=== PATIENT | male | born 1985 | race Caucasian/White ===

== ENCOUNTER → 2020-12-05 11:56 | Outpatient (CLI) | payer OTHER, SELFPAY ==
[2020-12-05 20:43] LABS: SARS-CoV-2 RNA PCR Negative
== END ==
PROVIDERS: PCP Family Medicine; Visit Provider Physician Assistant
DX: Z20.822 Contact with and (suspected) exposure to COVID-19 (principal); R68.89 Other general symptoms and signs
CPT/HCPCS: C9803; U0003; U0005

== ENCOUNTER 2021-06-27 11:36 | Outpatient (CLI) | payer OTHER, SELFPAY ==
--- NOTE | ~2021-06-27 | XR_ITS ---
EXAMINATION: XR chest 2V 06/27/2021 11:52 INDICATION: Cough PROCEDURE: 2 view chest COMPARISON: Comparison to multiple prior studies sequentially, with oldest reviewed study dated 12/24. FINDINGS: The lungs are clear. The cardiomediastinal silhouette is within normal limits. There are no pleural effusions. There is no pneumothorax suspected. IMPRESSION: 1: NO ACUTE CARDIOPULMONARY DISEASE. Reviewed, dictated and finalized at location A.
== END 2021-06-27 11:37 | disposition home or self-care (01) ==
LOC: ANHIMG 11:42
PROVIDERS: PCP Family Medicine; Visit Provider Physician Assistant
DX: R05 Cough (principal)
CPT/HCPCS: 71046

== ENCOUNTER 2021-12-16 10:58 | Outpatient (CLI) | payer OTHER, SELFPAY ==
--- NOTE | ~2021-12-16 | CT_ITS ---
EXAMINATION: CTA chest PE protocol DATE: 12/16/2021 11:16 INDICATION: Dyspnea, unspecified. TECHNIQUE: Computed tomography angiography (CTA) of the chest was performed with 100 mL Omnipaque-350 intravenous contrast timed to evaluate the pulmonary arteries. Coronal maximum intensity projection 3D-reconstructions were created by the technologist. Automated exposure control and iterative reconst ruction technique were employed. The dose-length product was 578.72 mGy-cm. COMPARISON: Chest CT 12/29/2011 FINDINGS: There is mild atelectasis bilaterally. There are tiny pleural effusions. The heart size is normal. No pericardial effusion. There is no pulmonary embolus. There is diffuse hepatic steatosis. T here is mild thoracic spondylosis. IMPRESSION: 1. No pulmonary embolus. 2. Tiny pleural effusions. 3. Diffuse hepatic steatosis. Reviewed, dictated and finalized at location A. R AUTOMATIC
== END 2021-12-16 10:59 | disposition home or self-care (01) ==
PROVIDERS: PCP Family Medicine; Visit Provider Nurse Practitioner Gerontology
DX: R06.00 Dyspnea, unspecified (principal); R06.89 Other abnormalities of breathing; Z86.711 Personal history of pulmonary embolism; K76.0 Fatty (change of) liver, not elsewhere classified; M47.814 Spondylosis without myelopathy or radiculopathy, thoracic region
CPT/HCPCS: 71275; Q9967

== ENCOUNTER 2022-03-06 01:50 | Emergency (ER) | payer OTHER, SELFPAY ==
[2022-03-06] VITALS (32 sets, daily range): BP systolic 120–145; BP diastolic 73–103; PULSE 87–117; RESP 8–31; TEMP 36.2–36.8; O2SAT 87–100
--- NOTE | ~2022-03-06 | CT_ITS ---
EXAMINATION: CT abdomen pelvis w con DATE: 03/06/2022 04:38 INDICATION: Left upper quadrant abdominal pain. TECHNIQUE: Computed tomography (CT) of the abdomen and pelvis was performed with 75 mL Omnipaque 300 intravenous contrast. Automated exposure control and iterative reconstruction technique were employed . The dose-length product was 654.38 mGy-cm. COMPARISON: Chest CT 12/16/2021 FINDINGS: The visualized portions of the lung bases demonstrate minimal atelectasis. No pleural effus ion. The heart size is normal. No pericardial effusion. The liver, gallbladder, spleen, pancreas, and adrenal glands are normal. There are 1 mm and 2 mm stones in right kidney. There is a 2 mm stone in left kidney. There is liquid stool in the colon suggestive of diarrhea. The appendix is normal. There are no dilated loops of bowel. There are no pathologically enlarged lymph nodes. There is no free in traperitoneal fluid. There is mild lumbar spondylosis. IMPRESSION: 1. Liquid stool in the colon suggestive of diarrhea. Reviewed, dictated and finalized at location A.
[2022-03-06 03:33] LABS: Basophils Percent Auto 0.3 % (0.2-1.2); Eosinophils Percent Auto 0.3 % (0-4.4); Hematocrit 52.1 % (42.0-52.0); Hemoglobin 17.7 g/dL (14.0-18.0); Immature Granulocyte Absolute 0.09 K/mm3 (0.00-0.031); Immature Granulocyte Percent A 0.7 % (0-0.5); Lymphocytes Absolute Auto 1.08 K/mm3 (0.9-3.2); Lymphocytes Percent Auto 7.9 % (18.3-44.2); Mean Corpuscular Hemoglobin 29.5 pg (26-34); Mean Corpuscular Volume 86.7 fl (80-100); Mean Platelet Volume 9.4 fl (7.4-10.4); Monocytes Percent Auto 7.4 % (2.6-8.5); Neutrophils Absolute Auto 11.5 K/mm3 (1.3-6.7); Neutrophils Percent Auto 83.4 % (45.5-73.1); Platelet Count Result 291 k/mm3 (150-375); Red Blood Count 6.01 M/mm3 (4.6-6.20); Red Cell Distribution Width 13.8 % (11.5-14.5); White Blood Count 13.7 K/mm3 (4.5-10.0)
[2022-03-06] MEDS: SODIUM CHLORIDE 0.9% IV 1,000 ML 999 ML IV CONT (03:43)
--- NOTE | 2022-03-06 03:45 | ED.NAVMDI ---
HPI - Nausea/Vomiting/Diarrhea General Chief complaint: GI Bleed Stated complaint: black emesis, diarrhea Time Seen by Provider: 03/06/22 03:10 History of Present Illness HPI Narrative: Patient is a 36-year old male complaining of nausea, vomiting, diarrhea accompanied by upper abdominal discomfort that started last night. Patient states that after taking Pepto-Bismol earlier tonight he started to vomit black vomitus. Patient describes his diarrhea as loose watery, nonbloody. Patient denies being in any oral anticoagulants and antiplatelet medication. Patient denies any recent use of NSAIDs. Related Data Allergies Allergy/AdvReac Type Severity Reaction Status Date / Time No Known Allergies Allergy Mild Verified 02/04/22 13:24 Review of Systems Review of Systems: All systems reviewed & are unremarkable except as noted in HPI and below Constitutional: Constitutional: Denies body ache(s), Denies chills, Denies excessive sweating, Denies fatigue, Denies fever(s), Denies headache(s), Denies lethargy, Denies malaise, Denies weakness and Denies weight loss Eyes: Eyes: Denies blurry vision, Denies change in vision and Denies loss of vision ENT: Denies dizziness, Denies ear discharge, Denies headache(s), Denies lip swelling, Denies epistaxis, Denies nasal congestion, Denies neck pain, Denies throat swelling and Denies tongue swelling Cardiovascular: Cardiovascular: Denies chest pain, Denies chest pain at rest, Denies chest pain with activity, Denies diaphoresis, Denies rapid heart rate, Denies edema, Denies irregular heart rhythm, Denies lightheadedness, Denies palpitations, Denies dyspnea and Denies dyspnea on exertion Respiratory: Respiratory: Denies chest congestion, Denies cough, Denies hemoptysis, Denies dyspnea and Denies dyspnea on exertion Gastrointestinal: Gastrointestinal: Denies melena and Denies hematochezia Musculoskeletal: Musculoskeletal: Denies abnormal gait, Denies deformity, Denies joint swelling, Denies limited range of motion, Denies neck pain and Denies numbness Neurologic: Denies Abnormal speech present, Denies abnormal gait, Denies confusion, Denies dizziness, Denies headache(s), Denies focal weakness, Denies loss of vision, Denies numbness, Denies Other visual disturbances, Denies Sensory deficit (Neuro) and Denies weakness Psychiatric: Psychiatric: Denies confusion, Denies depression, Denies auditory hallucinations, Denies homicidal ideation and Denies suicidal ideation Endocrine: Endocrine: Denies cold intolerance, Denies excessive sweating, Denies fatigue, Denies heat intolerance and Denies palpitations Hematologic/Lymphatic: Hematologic/Lymphatic: Denies easy bleeding and Denies easy bruising Allergic/Immunologic: Allergic/Immunologic: Denies lip swelling, Denies throat swelling and Denies tongue swelling PMFSH Past Medical History Medical History Adult hypothyroidism Pulmonary embolism (~2003) Family History Family History Other Diabetes mellitus Social History Social History Social History: Smoking packs per day: 0.25 Smoking cigarettes per day: 5.0 Years smoked: 5 Smoking pack-years: 1.25 Smoking status: Former smoker Tobacco type: cigarettes Second hand tobacco smoke exposure: No Alcohol intake: former Substance use: never Substance use type: does not use 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
[2022-03-06 03:46] LABS: INR 1.1; Prothrombin Time 13.6 Seconds (11.1-14.7)
[2022-03-06 03:47] LABS: Partial Thromboplastin Time 29.3 SECONDS (22.3-36.8)
[2022-03-06 04:15] LABS: Alanine Aminotransferase 50 U/L (6-50); Albumin Level 4.8 g/dL (3.5-5.1); Alkaline Phosphatase 73 U/L (38-126); Anion Gap 12 mmol/L (8-16); Aspartate Amino Transferase 37 U/L (17-59); Bilirubin,Total 2.5 mg/dL (0.2-1.3); Blood Urea Nitrogen 17 mg/dL (9-20); Carbon Dioxide 19 mmol/L (22-30); Chloride 108 mmol/L (98-107); Estimated CRCL calculation 97 ml/min; Estimated Glomerular Filt Rate > 60; Glucose 138 mg/dL (65-110); Potassium 3.6 mmol/L (3.4-5.0); Sodium 139 mmol/L (137-145)
[2022-03-06] MEDS: PROMETHAZINE HCL 25 MG/ML AMPUL 12.5 MG IV PUSH (04:35)
[2022-03-06] MEDS: PANTOPRAZOLE SODIUM IV 40 MG VIAL IV PUSH (04:35)
[2022-03-06] MEDS: ONDANSETRON INJ 4 MG/2 ML VIAL IV PUSH (04:53)
--- NOTE | 2022-03-06 06:09 | PC.NURSE ---
pt sleeping on sthretcher at this hour. Up to the bath room once. Arouses with eas to verbal stimuli. Reports feeling better at this time. cont awaiting CT results.
== END 2022-03-06 06:55 | disposition home or self-care (01) ==
LOC: ANHED 03:18
PROVIDERS: Emergency Provider Emergency Medicine; PCP Family Medicine
DX: K52.9 Noninfective gastroenteritis and colitis, unspecified (principal); E03.9 Hypothyroidism, unspecified; Z86.711 Personal history of pulmonary embolism; Z87.891 Personal history of nicotine dependence
CPT/HCPCS: 36415; 74177; 80053; 85025; 85610; 85730; 86850; 86900; 86901; 96361; 96374; 96375; 99284; C9113; J2405; J2550; J7030; Q9967

== ENCOUNTER → 2022-06-04 09:51 | Outpatient (CLI) | payer OTHER, SELFPAY ==
--- NOTE | ~2022-06-04 | XR_ITS ---
EXAMINATION: XR finger 1st LT min 2V DATE: 06/04/2022 10:05 INDICATION: Left thumb pain. Injury. TECHNIQUE: 3 views of left thumb were obtained. COMPARISON: None. FINDINGS: Bone alignment is normal. No fracture. There is mild osteoarthritis of first metacarpophala ngeal joint. IMPRESSION: 1. Mild osteoarthritis of first metacarpophalangeal joint. Reviewed, dictated and finalized at location A.
== END ==
PROVIDERS: PCP Family Medicine; Visit Provider Nurse Practitioner Gerontology
DX: M18.12 Unilateral primary osteoarthritis of first carpometacarpal joint, left hand (principal)
CPT/HCPCS: 73140

== ENCOUNTER 2022-09-24 12:25 | Outpatient (CLI) | payer OTHER, SELFPAY ==
[2022-09-24 13:41] LABS: SARS-CoV-2 RNA PCR Negative
== END 2022-09-24 12:26 | disposition home or self-care (01) ==
LOC: ANHLAB 12:27
PROVIDERS: PCP Family Medicine; Visit Provider Nurse Practitioner Gerontology
DX: Z20.822 Contact with and (suspected) exposure to COVID-19 (principal)
CPT/HCPCS: U0003; U0005

== ENCOUNTER 2022-09-29 12:17 | Outpatient (CLI) | payer OTHER, SELFPAY ==
--- NOTE | ~2022-09-29 | XR_ITS ---
Clinical Indication: Cough PA and lateral views of the chest: Comparison: 06/27/2021 Findings: The lungs are clear, without evidence of focal consolidation or pleural effusion. Cardiome diastinal silhouette is within normal limits. Bones and soft tissues are unremarkable. Impression: Normal chest. Reviewed, dictated and finalized at location [] RINTENDENT MEASUREMENT Impression: Normal chest.
== END 2022-09-29 12:18 | disposition home or self-care (01) ==
LOC: ANHIMG 12:19
PROVIDERS: PCP Family Medicine; Visit Provider Nurse Practitioner Gerontology
DX: R05.9 Cough, unspecified (principal)
CPT/HCPCS: 71046

== ENCOUNTER 2023-08-05 09:05 | Outpatient (CLI) | payer BC, SELFPAY ==
--- NOTE | ~2023-08-05 | XR_ITS ---
XR hand RT 2V DATE: 08/05/2023 09:27 INDICATION: Hand closed in door. Pain and swelling of fifth metacarpophalangeal area TECHNIQUE: AP and lateral views COMPARISON: None FINDINGS: No fracture or dislocation, periosteal reaction or bone destruction is evident. IMPRESSION: Negative Reviewed, dictated and finalized at location A. IMPRESSION: Negative
== END 2023-08-05 09:06 | disposition home or self-care (01) ==
PROVIDERS: PCP Family Medicine; Visit Provider Family Medicine
DX: S69.91XA Unspecified injury of right wrist, hand and finger(s), initial encounter (principal); W23.1XXA Caught, crushed, jammed, or pinched between stationary objects, initial encounter
CPT/HCPCS: 73120

== ENCOUNTER 2024-04-07 14:05 | Emergency (ER) | payer BC, SELFPAY ==
--- NOTE | ~2024-04-07 | XR_ITS ---
XR chest 2V Ordering provider: Delia Munoz MD History: 38 years Male with . CP, LEFT SIDE NECK PAIN, PURPLE TOES . Comparison: September 29, 2022 FINDINGS: MEDIASTINUM: The cardiac silhouette is not enlarged. LUNGS: No infiltrates, effusions or pneumothorax. OTHER: No free air under the diaphragm. IMPRESSION: No acute cardiopulmonary pathology. Reviewed, dictated and finalized at location A.
--- NOTE | ~2024-04-07 | CT_ITS ---
EXAMINATION: CTA chest PE protocol DATE: 04/07/2024 17:13 INDICATION: CP, SOB, hx PE TECHNIQUE: Computed tomography angiography (CTA) of the chest was performed with 100 mL Omnipaque-350 intravenous contrast timed to evaluate the pulmonary arteries. Coronal maximum intensity projection 3D-reconstructions were created by the technologist. The dose-length product (DLP) was 601.12 mGy-cm. Automated exposure control and iterative reconstruction technique were employed. COMPARISON: X-ray chest, same date; [facility]PA 12/16/2021. FINDINGS: Lung parenchyma and airways: Multiple sub-6 mm pulmonary nodules. Dependent atelectasis. Left upper l obe scar. Patent airways. Pleura: Unremarkable. Thoracic inlet, axillae and chest wall: Unremarkable. Thoracic aorta: No significant dilation. No dissection. Mediastinum: Normal. Heart and pericardium: Normal. Coronary artery calcifications: Absent. Upper abdomen: No significant finding. Bones: No acute osseous finding. Pulmonary arteries: Study quality: Adequate. No pulmonary emboli detected. IMPRESSION: No CT evidence of acute pulmonary embolus. No acute process detected in the chest. Multiple sub-6 mm pulmonary nodules which require no additional evaluation unless the patient is at h igh risk, in which case consider an optional low-dose noncontrast CT of the chest in 12 months. Reviewed, dictated and finalized at location K. IMPRESSION: No CT evidence of acute pulmonary embolus. No acute process detected in the chest. Multiple sub-6 mm pulmonary nodules which require no additional evaluation unle ss the patient is at high risk, in which case consider an optional low-dose non contrast CT of the chest in 12 months.
--- NOTE | ~2024-04-07 | XR_ITS ---
EXAM: XR foot RT min 3V DATE: 04/07/2024 18:11 HISTORY: toe bruising . COMPARISON: None available. FINDINGS: Normal mineralization. Corticated ossific body with sclerotic margins adjacent to the prox imal and lateral corner of the right first distal phalanx, likely old fracture fragment. No acute fra cture or dislocation. No lytic or blastic lesion. Mild degenerative change at the first MTP joint. Pl baltazar enthesopathy. No erosion or periosteal change. Soft tissues within normal limits. IMPRESSION: No acute osseous finding in the right foot. Reviewed, dictated and finalized at location K.
--- NOTE | 2024-04-07 14:06 | ECG_ITS ---
Test Date: 2024-04-07 14:42:28 Measurements Intervals [place] Rate: 92 P: 7 [place]: 160 QRS: -5 QRSD: 85 T: 7 QT: 318 QTc: 393 Interpretive Statements SINUS RHYTHM NORMAL ELECTROCARDIOGRAM No previous ECG available for comparison Electronically Signed On 04-08-2024 07:18:47 CDT by Glen Almendarez M.D.
[2024-04-07 14:29] VITALS: BP 153/108; PULSE 98; RESP 20; TEMP 36.8; O2SAT 99
[2024-04-07 14:53] LABS: Basophils Absolute Auto 0.1 K/mm3 (0.0-0.1); Basophils Percent Auto 0.7 % (0.2-1.2); Eosinophils Absolute Auto 0.1 K/mm3 (0-0.3); Eosinophils Percent Auto 0.9 % (0-4.4); Hematocrit 49.2 % (42.0-52.0); Hemoglobin 16.5 g/dL (14.0-18.0); Immature Granulocyte Absolute 0.12 K/mm3 (0.00-0.031); Immature Granulocyte Percent A 1.1 % (0-0.5); Lymphocytes Absolute Auto 2.31 K/mm3 (0.9-3.2); Lymphocytes Percent Auto 21.9 % (18.3-44.2); Mean Corpuscular HGB Conc 33.5 g/dl (32-36); Mean Corpuscular Hemoglobin 29.4 pg (26-34); Mean Corpuscular Volume 87.7 fl (80-100); Monocytes Absolute Auto 0.6 K/mm3 (0.1-0.6); Monocytes Percent Auto 5.8 % (2.6-8.5); Neutrophils Absolute Auto 7.4 K/mm3 (1.3-6.7); Neutrophils Percent Auto 69.6 % (45.5-73.1); Platelet Count Result 323 k/mm3 (150-375); Red Blood Count 5.61 M/mm3 (4.6-6.20); Red Cell Distribution Width 12.4 % (11.5-14.5); White Blood Count 10.6 K/mm3 (4.5-10.0)
[2024-04-07 15:04] LABS: Alanine Aminotransferase 55 U/L (6-50); Albumin Level 4.9 g/dL (3.5-5.1); Alkaline Phosphatase 96 U/L (38-126); Anion Gap 11 mmol/L (4-12); Aspartate Amino Transferase 38 U/L (17-59); Bilirubin,Total 1.3 mg/dL (0.2-1.3); Blood Urea Nitrogen 14 mg/dL (9-20); Calcium 9.3 mg/dL (8.4-10.2); Carbon Dioxide 25 mmol/L (22-30); Chloride 106 mmol/L (98-107); Estimated CRCL calculation 94 ml/min; Estimated Glomerular Filt Rate > 60; Glucose 96 mg/dL (65-110); Lipase 57 U/L (23-300); Potassium 3.3 mmol/L (3.4-5.0); Sodium 142 mmol/L (137-145)
[2024-04-07 15:06] LABS: Prothrombin Time 13.8 Seconds (11.1-14.7)
[2024-04-07 15:14] LABS: Troponin I < 0.012 ng/mL (0.000-0.034)
[2024-04-07 15:30] LABS: Influenza A QL RT-PCR Negative (Negative); Influenza B QL RT-PCR Negative (Negative); RSV RNA, RT-PCR Negative (Negative); SARS-CoV-2 RNA PCR Negative (Negative)
[2024-04-07 16:34] VITALS: BP 145/99; PULSE 85; PULSE 93; RESP 19; O2SAT 100
[2024-04-07] MEDS: ASPIRIN 81 MG CHEWABLE TABLET 324 MG PO (16:40)
[2024-04-07] MEDS: POTASSIUM CHLORIDE 20 MEQ ER TABLET 40 MEQ PO (16:40)
--- NOTE | 2024-04-07 16:50 | ECG_ITS ---
Test Date: 2024-04-07 17:35:42 Measurements Intervals [place] Rate: 91 P: 4 [place]: 158 QRS: -10 QRSD: 89 T: 18 QT: 333 QTc: 410 Interpretive Statements SINUS RHYTHM WITHIN NORMAL LIMITS Compared to ECG 04/07/2024 14:42:28 NO SIGNIFICANT CHANGE Electronically Signed On 04-08-2024 07:22:18 CDT by Glen Almendarez M.D.
[2024-04-07 17:06] LABS: Magnesium 1.9 mg/dL (1.6-2.3)
[2024-04-07 17:19] LABS: Troponin I < 0.012 ng/mL (0.000-0.034)
[2024-04-07] MEDS: diphenhydrAMINE HCl INJ 50 MG/ML VIAL IV PUSH (17:29)
--- NOTE | 2024-04-07 17:29 | PC.NURSE ---
Pt had hives prior to going to CT, following contrast hives worsened and spread. EDP notified and orders for 50mg Benadryl ordered, meds given. Pt denies feeling SOB or having difficulty swallowing or facial swelling.
[2024-04-07 17:31] VITALS: PULSE 96; RESP 14; O2SAT 100
[2024-04-07] MEDS: methylPREDNISolone SOD SUCC 125 MG VIAL IV PUSH (17:40)
[2024-04-07] MEDS: FAMOTIDINE 20 MG/2 ML VIAL IV PUSH (17:40)
--- NOTE | 2024-04-07 18:01 | ED.CHESTPAIN ---
HPI - Chest Pain General Chief Complaint: Chest Pain Stated Complaint: 2 nights ago CP Time Seen by Provider: 04/07/24 16:33 Source: patient Mode of arrival: ambulatory Limitations: no limitations History of Present Illness HPI narrative: This is a 38 year old male that presents to the ER for chest pain. Reports history of long-standing trouble with this, but this episode was worse than usual. Reports history of PE. Reports he has had a rash on his arms. Reports he has been on a muscle relaxer for back pain he has been experiencing. Otherwise no new medications or other exposures. Reports some shortness of breath and palpitations. Denies lower extremity edema. Related Data Home Medications Medication Instructions Recorded Confirmed citalopram 10 mg tablet 10 mg PO DAILY 06/30/22 03/24/24 prazosin 1 mg capsule 1 mg PO QHS 06/30/22 03/24/24 eszopiclone 2 mg tablet 2 mg PO QHS 04/01/23 03/24/24 Allergies Allergy/AdvReac Type Severity Reaction Status Date / Time amoxicillin [From Augmentin] AdvReac Mild Diarrhea Verified 04/07/24 16:36 clavulanic acid AdvReac Mild Diarrhea Verified 04/07/24 16:36 [From Augmentin] Review of Systems Review of Systems: CONSTITUTIONAL: Denies fever CARDIOVASCULAR: Reports chest pain, palpitations. Denies edema. RESPIRATORY: Reports dyspnea. SKIN: Reports rash and itching. All systems reviewed & are unremarkable except as noted in HPI and below PMFSH Past Medical History Medical History Acute mucoid otitis media of both ears Acute non-recurrent maxillary sinusitis Acute pain Acute pharyngitis, unspecified Adult hypothyroidism Elevated blood pressure reading Excessive body weight gain Insomnia, unspecified Left lower quadrant pain Nausea Pulmonary embolism (~2003) Slow transit constipation Strain of mid-back Subacute otitis media of both ears Tonsillitis Trapezius muscle strain URI, acute Family History Family History Other Diabetes mellitus Social History Social History Social History: Smoking packs per day: 0.25 Smoking cigarettes per day: 5.0 Years smoked: 5 Smoking pack-years: 1.25 Smoking status: Former smoker Tobacco type: cigarettes Second hand tobacco smoke exposure: No Alcohol intake: former Substance use: never Substance use type: does not use Lack of Transportation: No Lack of Food: Never True Current Housing: I Have Housing Concerned About Future Housing: No Difficulty Paying Gas/Electric Bills: No Difficulty Paying for Meds: No Currently Unemployed: YES Education: Bachelor's Degree Difficulty w/ Childcare or Family Care: No Living arrangements: with family Occupation/Education: unemployed 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 HEAD: Normocephalic, atraumatic. EYES: EOMI. ENT: Nares clear, no rhinorrhea or epistaxis. Mucous membranes moist. Oropharynx without tonsillar hypertrophy exudate or other lesions. NECK: Supple. No adenopathy or masses. No JVD CHEST: Clear to auscultation. No respiratory distress. No wheezes rales or rhonchi HEART: Regular rate and rhythm. No murmur heard. Normal peripheral pulses. EXTREMITIES: Normal range of motion. No edema. Bruising to the right third toe. Normal DP and PT pulses SKIN: Warm, dry. Hives present on the bilateral arms, chest and back NEURO: No focal deficits. Alert and oriented x3. PSYCH: Anxious Course Course Emergency Course: Patient now endorsing right ear pain. He does have erythema of the right TM which is bulging Updated on his workup and agrees with
[2024-04-07 18:36] VITALS: BP 156/112; PULSE 94; RESP 17; O2SAT 99
[2024-04-07 18:56] VITALS: BP 145/99; PULSE 93; RESP 16; O2SAT 98
[2024-04-07] MEDS: KETOROLAC 15 MG/ML VIAL (*BKC) IV PUSH (18:56)
[2024-04-07 19:28] VITALS: O2SAT 100
== END 2024-04-07 19:29 | disposition home or self-care (01) ==
PROVIDERS: Emergency Medicine; Emergency Provider Physician Assistant; PCP Family Medicine
DX: R07.89 Other chest pain (principal); E87.6 Hypokalemia; H66.91 Otitis media, unspecified, right ear; T78.40XA Allergy, unspecified, initial encounter; L50.0 Allergic urticaria; M79.81 Nontraumatic hematoma of soft tissue; R91.8 Other nonspecific abnormal finding of lung field; Z20.822 Contact with and (suspected) exposure to COVID-19; E03.9 Hypothyroidism, unspecified; Z86.711 Personal history of pulmonary embolism; Z87.891 Personal history of nicotine dependence; X58.XXXA Exposure to other specified factors, initial encounter
CPT/HCPCS: 36415; 71046; 71275; 73630; 80053; 83690; 83735; 84484; 85025; 85610; 85730; 87637; 93005; 96374; 96375; 99284; A9270; J1200; J1885; J2919; Q9967

== ENCOUNTER 2024-08-24 09:38 | Outpatient (CLI) | payer BC, SELFPAY ==
--- NOTE | ~2024-08-24 | XR_ITS ---
XR chest 2V Ordering provider: Abby Mckinley PA-C History: 38 years Male with . R05.9 - Cough, unspecified . Comparison: None. FINDINGS: MEDIASTINUM: The cardiac silhouette is not enlarged. LUNGS: No effusions or pneumothorax. Prominent markings in the lower lobes with minimal Opacification in the left lower lobe area medially. OTHER: No free air under the diaphragm. IMPRESSION: Highly suggestive of early pneumonia in the left lung base. Follow-up advised. Reviewed, dictated and finalized at location A. RMEDIATE TEACHER
== END 2024-08-24 09:39 | disposition home or self-care (01) ==
PROVIDERS: PCP Family Medicine; Visit Provider Student in an Organized Health Care Education/Training Program
DX: R05.9 Cough, unspecified (principal)
CPT/HCPCS: 71046

== ENCOUNTER 2024-09-30 14:29 | Outpatient (CLI) | payer BC, SELFPAY ==
[2024-09-30 14:48] LABS: Basophils Absolute Auto 0.1 K/mm3 (0.0-0.1); Basophils Percent Auto 1.3 % (0.2-1.2); Eosinophils Absolute Auto 0.2 K/mm3 (0-0.3); Eosinophils Percent Auto 1.9 % (0-4.4); Hematocrit 46.3 % (42.0-52.0); Hemoglobin 16.2 g/dL (14.0-18.0); Immature Granulocyte Absolute 0.12 K/mm3 (0.00-0.031); Immature Granulocyte Percent A 1.4 % (0-0.5); Lymphocytes Absolute Auto 2.66 K/mm3 (0.9-3.2); Lymphocytes Percent Auto 31.7 % (18.3-44.2); Mean Corpuscular Hemoglobin 30.4 pg (26-34); Mean Corpuscular Volume 86.9 fl (80-100); Mean Platelet Volume 8.9 fl (7.4-10.4); Monocytes Absolute Auto 0.7 K/mm3 (0.1-0.6); Monocytes Percent Auto 7.9 % (2.6-8.5); Neutrophils Absolute Auto 4.7 K/mm3 (1.3-6.7); Neutrophils Percent Auto 55.8 % (45.5-73.1); Platelet Count Result 267 k/mm3 (150-375); Red Blood Count 5.33 M/mm3 (4.6-6.20); Red Cell Distribution Width 13.4 % (11.5-14.5); White Blood Count 8.4 K/mm3 (4.5-10.0)
[2024-09-30 15:00] LABS: Alanine Aminotransferase 30 U/L (6-50); Albumin Level 4.7 g/dL (3.5-5.1); Alkaline Phosphatase 55 U/L (38-126); Anion Gap 6 mmol/L (4-12); Aspartate Amino Transferase 36 U/L (17-59); Blood Urea Nitrogen 8 mg/dL (9-20); CRP < 0.5 mg/dL (<1.0); Calcium 9.5 mg/dL (8.4-10.2); Carbon Dioxide 26 mmol/L (22-30); Chloride 106 mmol/L (98-107); Estimated Glomerular Filt Rate > 60; Glucose 94 mg/dL (65-110); Potassium 3.7 mmol/L (3.4-5.0); Sodium 138 mmol/L (137-145)
[2024-09-30 15:14] LABS: Erythrocyte Sedimentation Rate 3 mm/hr (0-20)
[2024-10-04 16:24] LABS: ANA Cascade Screen NEGATIVE (NEGATIVE)
[2024-10-05 10:45] LABS: Vitamin D 1,25 (OH)2 Total 72 pg/mL (18-72); Vitamin D2 1,25 (OH)2 <8 pg/mL; Vitamin D3 1,25 (OH)2 72 pg/mL
== END 2024-09-30 14:30 | disposition home or self-care (01) ==
PROVIDERS: PCP Family Medicine; Visit Provider Student in an Organized Health Care Education/Training Program
DX: R00.0 Tachycardia, unspecified (principal); R53.83 Other fatigue; M79.10 Myalgia, unspecified site; R06.02 Shortness of breath; E55.9 Vitamin D deficiency, unspecified
CPT/HCPCS: 36415; 80053; 82607; 82652; 85025; 85652; 86038; 86140; 86225; 86235; 86364

== ENCOUNTER 2025-02-16 09:32 | Outpatient (CLI) | payer BC, SELFPAY ==
--- OUTSIDE RECORDS SUMMARY | 2025-02-16 09:48 | XMS_ITS | Clinical Summary ---
Author Organization [facility] Address [address] [place] [address] Care Team Providers Care Bundle Cutter Name Role Phone Unavailable Primary Care Provider Unavailabl e Social History Tobacco Use Types Packs/Day Years Used Date Smoking Tobacco: Never Assessed Sex and Gender Information Value Date Recorded Sex Assigned at Not on file Legal Sex Male 6:17 PM CDT Gender Identity Not on file Sexual Orientation Not on file Plan of Treatment Health Maintenance Due Date Last Done Comments Annual Physical 1988 Hepatitis C 12/20/2003 DTaP, Tdap and Td Vaccines ( 1 - Tdap) 2004 Hepatitis B Vaccines (1 of 3 - 19+ 3-dose series) 2004 COVID-19 Vaccine (2023-2 5 season) 2024 HPV Vaccines Aged Out No longer eligi ble based on patient's age to complete this topic Meningococcal B Vaccine Aged Out No l onger eligible based on patient's age to complete this topic Meningococcal Vaccine Aged Out No patricia mariaelena eligible based on patient's age to complete this topic Pneumococcal Vaccine: Pediat rics (0 to 5 Years) and At-Risk Patients (6 to 49 Years) Aged Out No longer eligible b ased on patient's age to complete this topic RSV Immunizations Under 20 Months Aged Out No longer eligible based on patient's age to complete this topic
--- NOTE | 2025-02-16 11:48 | WPDPFTINT ---
PFT Procedure Performed PFT Procedure Performed Spirometry with Pre/Post Bronchodilator Plethysmography (Lung Vol) Diffusing Cap (DLCO) Flow Vol Loop PFT Interpretation This is a pulmonary function test with pre and post-bronchodilator spirometry, plethysmography and diffusing capacity. The test was performed and results interpreted in accordance with the 2019 and 2005 ATS/ERS Task Force guidelines respectively using the Global Lung Function Initiative-2012 reference equations. Patient demonstrated good effort and cooperation. Reproducibility criteria were met. The quality of the pre bronchodilator spirometry maneuver was Grade A and post bronchodilator spirometry maneuver was Grade A. Findings: Spirometry: The contour the inspiratory and expiratory flow tracing are normal. The pre bronchodilator FVC is 4.85 L, 86% predicted. The pre bronchodilator FEV1 is 3.78 L, 83% predicted. The pre bronchodilator FEV1: FVC ratio is 78%. The post bronchodilator FVC is 4.99 L, representing a 3% increase. The post bronchodilator FEV1 is 4.00 L, representing a 6% increase. The post bronchodilator FEV1: FVC ratio is 80%. Plethysmography: The total lung capacity is 7.32 L, 100% predicted. The functional residual capacity is 2.72 L, 74% predicted. The residual volume is 2.14 L, 111% predicted. Diffusing capacity: The diffusing capacity unadjusted for hemoglobin and carboxyhemoglobin is 32.1, 94% predicted. The diffusing capacity adjusted for alveolar volume is 4.78, 100% predicted. Impression: The spirometry is normal without evidence of an obstructive abnormality. There is no significant improvement after inhaling a single dose of albuterol. The lung volumes are normal. The diffusing capacity is normal. There are no prior studies for comparison
== END 2025-02-16 09:33 | disposition home or self-care (01) ==
PROVIDERS: PCP Family Medicine; Visit Provider Internal Medicine Critical Care Medicine
DX: R06.02 Shortness of breath (principal)
CPT/HCPCS: 94060; 94726; 94729

== ENCOUNTER 2025-03-30 09:15 | Outpatient (CLI) | payer BC, SELFPAY ==
[2025-04-12 12:52] VITALS: BMI 29.8
--- NOTE | 2025-04-12 12:52 | P.SLEEP_ITS ---
Sleep Study - Home Unattended Date of Study: 03/30/25 Ordering Provider: Janie Brower MD Interpreting Provider: Serina Babin, DO Home Sleep Study Type: Watch PAT Height: 1.83 m Weight: 99.79 kg Body Mass Index: 29.8 Neck Circumference (inches): 17.5 [place]: 4 Reason for Sleep Study snoring, daytime hypersomnia Sleep History The patient is a 39-year-old male that had a sleep study ordered by his sleep [facility] physician for evaluation of sleep apnea. The patient frequently awakens from sleep short of breath. He rarely awakens at night with heartburn, belching or cough. He constantly snores loudly enough that others complain. He frequently has trouble sleeping when he has a cold. He constantly wakes up gasping for air throughout the night. He constantly has breathing problems at night observed by himself or others. He constantly sweats excessively at night. He constantly has heart palpitations or irregular heartbeats during the night. He occasionally falls asleep during the day but never while driving. He frequently experiences loss of muscle tone when extremely emotional. He frequently has trouble at school or work due to sleepiness. He constantly feels unable to move while waking up or falling asleep. He constantly experiences vivid dreamlike scenes upon awakening or falling asleep. He constantly feels afraid of going to sleep. He constantly has nightmares. He occasionally remembers his dreams. He frequently has thoughts racing through his mind. He frequently feels sad, depressed and anxious. He constantly has muscular tension. He frequently notices parts of his body jerk. He constantly kicks during the night. He constantly has crawling and aching feelings in his legs and constantly has leg pain during the night. He occasionally grinds his teeth during sleep and frequently awakens morning jaw pain. He is frequently bothered by pain during the day and frequently awakened by pain during the night. He constantly wakes up feeling stiff in the morning. He constantly wakes up with sore or achy muscles. He constantly wakes pain in the neck, spine and other joints. He goes to bed between 9-10 p.m. on both weekdays and weekends. It takes him hours to fall asleep. He wakes up 1-5 times throughout the night for a multitude of reasons and it can take up to 2 hours for him to fall back asleep. He wakes between 5-9 a.m. on both weekdays and weekends. He typically gets 4-6 hours of sleep per night. He will stay in bed for 30-60 minutes after waking up in the morning. He currently lives with his and children. He denies consuming any caffeinated beverages within 2 hours of bedtime. He does engage in physical exercise before bedtime. He will read before falling asleep. He will occasionally watch television before falling asleep. He will take naps in the afternoon or the evening with they are not refreshing. He denies consuming any caffeinated beverages throughout the day. He quit smoking cigarettes over 10 years ago. He will consume alcohol. He denies recreational drug use. [facility] Past Medical History Medical History Acute bronchitis Sprain of rhomboid Acute pain Subluxation of costovertebral joint Hand injury Obesity (BMI 30.0-34.9) Lichen planus Contact dermatitis due to plant Cough URI (upper respiratory infection) Oral lesion Acute pain URI, acute Trapezius muscle strain Tonsillitis Subacute otitis media of both ears Strain of mid-back Slow transit constipation Nausea Left lower quadrant pain Insomnia, unspecified Excessive body weight gain Elevated blood pressure reading Acute pharyngitis, unspecified Acute non-recurrent maxillary sinusitis Acute mucoid otitis media of both ears Mass of gingiva Otitis media Upper respiratory infection Injury of left thumb Intractable hiccups Atypical chest pain Acute laryngitis and tracheitis Abdominal pain Acute sinusitis Acute pain Rib sprain Knee effusion, left MCL sprain of left knee Gastroenteritis Tinea barbae Low back pain Back muscle spasm Sacroiliac inflammation Back strain Adult hypothyroidism Pulmonary embolism (~2003) Family History Family History Other Diabetes mellitus Social History Social History Social History: Smoking packs per day: 0.25 Smoking cigarettes per day: 5.0 Years smoked: 5 Smoking pack-years: 1.25 Smoking status: Former smoker Tobacco type: cigarettes Second hand tobacco smoke exposure: No Alcohol intake: former Substance use: never Substance use type: does not use Do You Feel Safe in your Home?: Yes Lack of Transportation: No Lack of Food: Never True Current Housing: I Have Housing Concerned About Future Housing: No Difficulty Paying Gas/Electric Bills: No Difficulty Paying for Meds: No Currently Unemployed: YES Education: Bachelor's Degree Difficulty w/ Childcare or Family Care: No Living arrangements: with family Occupation/Education: unemployed 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 Gender identity (if verbalized by the patient): Male Sexual Orientation (if Verbalized by the Patient): Straight or Heterosexual Medications Home Medications ?Medication ?Instructions ?Recorded ?Confirmed ?Type rosuvastatin 5 mg tablet See Rx Instructions .Route 10/21/24 02/01/25 Rx .COMPLEX #90 tabs olmesartan 20 mg tablet 20 mg PO DAILY #90 tabs 11/01/24 02/01/25 Rx metoprolol tartrate 25 mg tablet See Rx Instructions .Route 01/17/25 02/01/25 Rx .COMPLEX #180 tabs quetiapine 25 mg tablet 50 mg (2 x 25 mg) PO QHS #180 tabs 01/23/25 02/01/25 Rx Sleep Procedure The sleep study was completed using [employer] a technically adequate device with seven channels: peripheral arterial tone, actigraphy, body position, snore, respiratory movement, pulse oximetry, sleep staging, and heart rate. Prior to using the device, the patient received verbal and written instructions for its application and was provided with the help desk phone number for additional telephonic instruction with 24-hour availability of qualified personnel to answer questions. The study was scored using CMS guidelines. Sleep Architecture The total recording time is 10 hrs, 21 min. The total sleep time is 8 hrs, 58 min. Sleep latency is 18 minutes. REM latency is 221 minutes. The patient had 5 episodes of waking. Sleep architecture shows 23.0% deep sleep, 50.8% light sleep, and (as % Total Sleep Time) showed NREM (Light 50.8%; Deep 23.0%), and a 26.2% stage REM. The patient spent 38.7% of total sleep time in the supine position. Sleep efficiency was 86.63. Respiratory Analysis The overall AHI (pAHI 4%:) is 4.9. The overall AHI (pAHI 3%:) is 11.1. The central AHI is 0.2. The AHI was 7.8 in NREM and 20.1 in REM sleep. The AHI was 20.5 in Supine and 5.5 in Non-supine sleep. Percent of Lemuel Emerson respirations is 0.0. Oximetry Data The oxygen desaturation index (MICA 4%:) is 5.0. The mean saturation is 93%, and the lowest saturation is 84%. Time spent with saturation < 88% is 0.2 minutes. Snoring Profile Snoring average intensity is 41 dB. The patient snored above 45 decibels for 37.4 minutes, 6.9% of sleep time. Cardiac Profile The average pulse rate is 68 beats per minutes. The lowest pulse rate is 47 bpm. The highest pulse rate reported is 103 bpm. Atrial fibrillation was not detected. Premature beats occur <0.1 per minute. Assessment and Plan Assessment and Plan (1) MERCEDES (obstructive sleep apnea): Code(s): G47.33 - Obstructive sleep apnea (adult) (pediatric) Status: Acute Assessment and Plan: Per AASM guidelines (pAHI 3%), the patient had an overall AHI of 11.1 with desaturation down to 84%. This is consistent with mild sleep apnea. Due to the patient's hypertension, he qualifies for treatment. I recommend that the patient be prescribed AutoPAP 5-15 cm H2O, CPAP mask/filters/tubing and heated humidity. A mandibular advancement device is also an acceptable treatment option. This should be used with all episodes of sleep.? Compliance should be reviewed within 31-90 days of starting therapy for usage greater than 4 hours per night greater than 70% of the nights. The patient should be asked about symptoms such as?excessive daytime sleepiness, quality of sleep, decreased nocturia, increased?mental functioning such as memory, mood, and concentration. Per CMS guidelines (pAHI4%), the patient had an overall AHI of 4.9 with desaturation down to 84%. This is not consistent with sleep-disordered breathing. Given that his AHI on this home sleep test was just barely below the cutoff of an AHI of 5.0, the test was likely a false negative. I recommend that the patient have a split study with the use of a hypnotic to ensure we obtain enough sleep data. Data The data obtained during this sleep study is adequate for interpretation. Certification This sleep study has been reviewed by a board certified sleep medicine physician.
== END 2025-03-31 10:16 | disposition home or self-care (01) ==
LOC: ANHCSM 09:19
PROVIDERS: PCP Family Medicine; Visit Provider Internal Medicine Critical Care Medicine
DX: G47.33 Obstructive sleep apnea (adult) (pediatric) (principal); G47.10 Hypersomnia, unspecified
CPT/HCPCS: 95800

== ENCOUNTER 2025-04-13 09:24 | Outpatient (CLI) | payer BC, SELFPAY ==
--- NOTE | ~2025-04-13 | CT_ITS ---
CT Scan of the Chest without Contrast: Clinical Indication: Nonspecific abnormal finding of lung field Technique: Contiguous sections were acquired throughout the chest without intravenous contrast. Dose reduction technique was used on this scan by utilizing automated exposure control and iterative recon struction technique. The dose-length product (DLP) was 332.51 mGy-cm. COMPARISON: 04/07/2024 Findings: There is no evidence of any significant mediastinal, hilar or axillary lymphadenopathy. The mediastin al soft tissues appear normal. There is no evidence of pleural or pericardial effusion. The lungs are clear. No pulmonary nodules or infiltrates are noted. Images through the upper abdomen reveal no abnormalities. Impression: No significant abnormalities seen. Reviewed, dictated and finalized at location . Impression: No significant abnormalities seen.
--- OUTSIDE RECORDS SUMMARY | 2025-04-13 09:33 | XMS_ITS | Clinical Summary ---
Author Organization [facility] Address [address] [place] [address] Care Team Providers Care Pharmacovigilance Scientist Name Role Phone Unavailable Primary Care Provider [...]
== END 2025-04-13 09:25 | disposition home or self-care (01) ==
PROVIDERS: PCP Family Medicine; Visit Provider Internal Medicine Critical Care Medicine
DX: R91.8 Other nonspecific abnormal finding of lung field (principal)
CPT/HCPCS: 71250

== ENCOUNTER 2025-05-04 16:41 | Emergency (ER) | payer BC, SELFPAY ==
--- NOTE | ~2025-05-04 | XR_ITS ---
EXAMINATION: XR forearm LT 2V DATE: 05/04/2025 16:55 INDICATION: Posttraumatic pain at the proximal to mid left forearm TECHNIQUE: AP an lateral views of the left forearm were obtained. COMPARISON: none FINDINGS: Alignment is normal. No fracture. Joint spaces are normal. Soft tissues are unremarkable. No left elb ow joint effusion. IMPRESSION: 1. Negative left forearm radiographs. Reviewed, dictated and finalized at location A.
--- NOTE | 2025-05-04 16:46 | ED_ITS ---
HPI - Extremity Injury (Upper) General Chief Complaint: Extremity Injury, Upper Stated Complaint: Left Arm Pain Time Seen by Provider: 05/04/25 16:48 Source: patient, RN notes reviewed and old records reviewed Mode of arrival: ambulatory Limitations: no limitations History of Present Illness HPI narrative: 39-year-old male presents to the [facility] with left forearm pain for approximately 2 hours. Patient states that he was climbing over a car seat to get out of the car when a door slammed on his forearm. Has taken 2 ibuprofen. Does have full range of motion. Pain with movement. Tenderness to the mid to proximal forearm. No elbow involvement. Onset (ago): hour(s) (2) Related Data Allergies Allergy/AdvReac Type Severity Reaction Status Date / Time amoxicillin (From Augmentin) AdvReac Mild Diarrhea Verified 05/04/25 16:49 clavulanic acid (From AdvReac Mild Diarrhea Verified 05/04/25 16:49 Augmentin) Review of Systems Review of Systems: All systems reviewed & are unremarkable except as noted in HPI and below Constitutional: Constitutional: Reports no additional constitutional complaints ENT: Reports system reviewed and no additional complaints, except as documented Musculoskeletal: Musculoskeletal: Reports as per HPI Integumentary/Breasts: Skin/Breast: Reports system reviewed and no additional complaints, except as docu [facility] Past Medical History Medical History Acute bronchitis Sprain of rhomboid Acute pain Subluxation of costovertebral joint Hand injury Obesity (BMI 30.0-34.9) Lichen planus Contact dermatitis due to plant Cough URI (upper respiratory infection) Oral lesion Acute pain URI, acute Trapezius muscle strain Tonsillitis Subacute otitis media of both ears Strain of mid-back Slow transit constipation Nausea Left lower quadrant pain Insomnia, unspecified Excessive body weight gain Elevated blood pressure reading Acute pharyngitis, unspecified Acute non-recurrent maxillary sinusitis Acute mucoid otitis media of both ears Mass of gingiva Otitis media Upper respiratory infection Injury of left thumb Intractable hiccups Atypical chest pain Acute laryngitis and tracheitis Abdominal pain Acute sinusitis Acute pain Rib sprain Knee effusion, left MCL sprain of left knee Gastroenteritis Tinea barbae Low back pain Back muscle spasm Sacroiliac inflammation Back strain Adult hypothyroidism Pulmonary embolism (~2003) Family History Family History Other Diabetes mellitus Social History Social History Social History: Smoking packs per day: 0.25 Smoking cigarettes per day: 5.0 Years smoked: 5 Smoking pack-years: 1.25 Smoking status: Former smoker Tobacco type: cigarettes Second hand tobacco smoke exposure: No Alcohol intake: former Substance use: never Substance use type: does not use Do You Feel Safe in your Home?: Yes Lack of Transportation: No Lack of Food: Never True Current Housing: I Have Housing Concerned About Future Housing: No Difficulty Paying Gas/Electric Bills: No Difficulty Paying for Meds: No Currently Unemployed: YES Education: Bachelor's Degree Difficulty w/ Childcare or Family Care: No Living arrangements: with family Occupation/Education: unemployed 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 There is no relevant family history pertinent to the patient complaint. Exam Const: General: cooperative, healthy appearing, comfortable, no acute distress, well developed, alert and well nourished Nutritional Appearance: well nourished Orientation/consciousness: patient oriented x3 Limitations: no limitations HENMT: Head: normal to inspection Eyes: General: appearance normal, both eyes and all related structures Alignment and Position: alignment normal Neck: Neck: normal visual inspection, full ROM, no lymphadenopathy and no meningeal signs Chest: Chest palpation & inspection: normal inspection of the chest Resp: Effort & Inspection: normal respiratory effort and able to speak in complete sentences Cardio: Rate: regular rate Skin: General skin exam: normal color and no rashes or lesions noted Neuro: General: patient oriented x3, gait normal, moves all extremities and no meningeal signs Cognition (Neuro): normal cognition Speech: normal speech Gait exam (Neuro): Normal gait present Extrem: General: normal to inspection, full ROM, capillary refill normal and normal gait Left upper extremity: elbow/forearm tenderness of the proximal forearm, normal ROM and distal pulses intact; no unusual warmth, no abrasions, no lacerations, no ecchymosis, no penetrating wound and no deformity Psych: Appearance: grossly normal and well kempt Mental Status: mental status grossly normal Speech and movement: Normal speech and movement present and Clear speech present Affect: normal affect Attitude: cooperative Course Course Level of Care: Express Care Visit Vital Signs Vital signs: Vital Signs Temperature 96.8 F L 05/04/25 16:49 Pulse Rate 63 05/04/25 16:49 Respiratory Rate 16 05/04/25 16:49 Blood Pressure 128/82 05/04/25 16:49 Pulse Oximetry 100 05/04/25 16:49 Temperature 96.8 F L 05/04/25 16:49 Pulse Rate 63 05/04/25 16:49 Respiratory Rate 16 05/04/25 16:49 Blood Pressure 128/82 05/04/25 16:49 Pulse Oximetry 100 05/04/25 16:49 Reviewed MDM - Extremity Injury (Upper) MDM Narrative Medical decision making narrative: Patient sitting exam room. Patient is nontoxic, vitals are stable. Patient presents with left forearm pain after getting it slammed in a door. Patient to take ibuprofen X-ray negative Patient appropriate for outpatient treatment with close follow-up Discharge instructions reviewed with patient, as well as provided in writing per nursing staff. The instructions also include specific and strict return/GO TO THE ER as well as f/u information. All questions have been answered, and the patient deny any further questions with discharge and discharge plan. Some parts of this dictation were generated by voice recognition software and may contain typographical and/or grammatical inaccuracies. Differential Diagnosis Differential diagnosis: Likely other (Forearm fracture, forearm contusion) Imaging Data Radiologist's impression: EXAMINATION: XR forearm LT 2V DATE: 05/04/2025 16:55 INDICATION: Posttraumatic pain at the proximal to mid left forearm TECHNIQUE: AP an lateral views of the left forearm were obtained. COMPARISON: none FINDINGS: Alignment is normal. No fracture. Joint spaces are normal. Soft tissues are unremarkable. No left elbow joint effusion. IMPRESSION: 1. Negative left forearm radiographs. Critical Care Time Critical Care Time Critical Care Time: No Discharge Plan Discharge Clinical Impression: Contusion of forearm, left Qualifiers: Encounter type: initial encounter Qualified Code(s): S50.12XA - Contusion of left forearm, initial encounter Patient Disposition: Home Condition: Stable Instructions: Contusion in Adults (ED) Additional Instructions: Your Xray did not show a fracture. Ice should be applied to help reduce swelling. It can be used for 20 to 30 minutes, every 2-3 hours while awake. Do not apply ice directly to your skin. You can alternate ibuprofen 600mg and Tylenol 650mg every 4 hours as needed for pain Please schedule a follow-up visit with your personal physician for further evaluation and treatment within 2 weeks especially if symptoms persist. For new or worsening symptoms go directly to the emergency room Patient Language: Belarusian Prescriptions: No Action rosuvastatin 5 mg tablet See Rx Instructions .ROUTE .COMPLEX Qty: 90 1RF Dose Instruction: TAKE 1 TABLET BY MOUTH EVERY DAY Rx Instructions: TAKE 1 TABLET BY MOUTH EVERY DAY olmesartan 20 mg tablet 20 mg PO DAILY Qty: 90 2RF metoprolol tartrate 25 mg tablet See Rx Instructions .ROUTE .COMPLEX Qty: 180 1RF Dose Instruction: TAKE 1 TABLET BY MOUTH TWICE A DAY Rx Instructions: TAKE 1 TABLET BY MOUTH TWICE A DAY quetiapine 25 mg tablet 50 mg PO QHS Qty: 180 0RF Follow-up/Referrals: Chandler Moncada MD [Primary Care Provider] - 2 Weeks (express care follow up ) Stand Alone Forms: Work/School Release IP Time of Disposition: 17:50
[2025-05-04 16:49] VITALS: BP 128/82; PULSE 63; RESP 16; TEMP 36; O2SAT 100
== END 2025-05-04 17:56 | disposition home or self-care (01) ==
PROVIDERS: Emergency Provider Nurse Practitioner; PCP Family Medicine
DX: S50.12XA Contusion of left forearm, initial encounter (principal); W23.1XXA Caught, crushed, jammed, or pinched between stationary objects, initial encounter; Z87.891 Personal history of nicotine dependence; E66.9 Obesity, unspecified; Z68.29 Body mass index [BMI] 29.0-29.9, adult; E03.9 Hypothyroidism, unspecified; Z86.711 Personal history of pulmonary embolism
CPT/HCPCS: 73090; 99213; G0463

== ENCOUNTER 2025-07-17 10:02 | Outpatient (CLI) | payer BC, SELFPAY ==
--- NOTE | 2025-07-17 10:10 | EST_ITS ---
Patient Info Name: Wesly Pink Age: 39 years : 1985 Gender: Male Ht: 72 in Wt: 210 lbs BSA: 2.22 m2 HR: 88 bpm BP: 129 / 79 mmHg Exam Date: 07/17/2025 10:10 AM Patient Status: O Admit Date: 07/17/2025 Exam Type: CA stress test treadmill A treadmill exercise stress test was performed. Staff Referring Physician: Abby Mckinley Attending Provider: Abby Mckinley Exercise Technologist: Maria Esther Fontaine Exercise Physician: Chai De La Vega DO Summary 1. 1. Negative Peter exercise stress test for ischemic ST changes by ECG criteria. 2. 2. Good functional capacity, achieving 10 METs of workload. 3. 3. Appropriate HR response to exercise. 4. 4. Appropriate HR recovery at 1 minute post exercise. 5. 5. No imaging with stress testing. 6. 6. Patient informed of the above results. Protocol: Peter Stress ECG Details Stage: REST Duration (min): 1 min : 5 sec Speed (mph): 0.0 Grade (%): 0 HR (bpm): 87 SBP (mmHg): 129 DBP (mmHg): 79 METS: --- Stage: REST Duration (min): 8 min : 49 sec Speed (mph): 0.0 Grade (%): 0 HR (bpm): 97 SBP (mmHg): 129 DBP (mmHg): 79 METS: --- Stage: STAGE 1 Duration (min): 1 min : 0 sec Speed (mph): 1.7 Grade (%): 10 HR (bpm): 120 SBP (mmHg): 129 DBP (mmHg): 79 METS: --- Stage: STAGE 1 Duration (min): 2 min : 0 sec Speed (mph): 1.7 Grade (%): 10 HR (bpm): 130 SBP (mmHg): 129 DBP (mmHg): 79 METS: --- Stage: STAGE 1 Duration (min): 3 min : 0 sec Speed (mph): 1.7 Grade (%): 10 HR (bpm): 128 SBP (mmHg): 153 DBP (mmHg): 68 METS: --- Stage: STAGE 2 Duration (min): 1 min : 0 sec Speed (mph): 2.5 Grade (%): 12 HR (bpm): 140 SBP (mmHg): 153 DBP (mmHg): 68 METS: --- Stage: STAGE 2 Duration (min): 2 min : 0 sec Speed (mph): 2.5 Grade (%): 12 HR (bpm): 147 SBP (mmHg): 142 DBP (mmHg): 76 METS: --- Stage: STAGE 2 Duration (min): 3 min : 0 sec Speed (mph): 2.5 Grade (%): 12 HR (bpm): 148 SBP (mmHg): 142 DBP (mmHg): 76 METS: --- Stage: STAGE 3 Duration (min): 1 min : 0 sec Speed (mph): 3.4 Grade (%): 14 HR (bpm): 157 SBP (mmHg): 139 DBP (mmHg): 62 METS: --- Stage: STAGE 3 Duration (min): 2 min : 0 sec Speed (mph): 3.4 Grade (%): 14 HR (bpm): 167 SBP (mmHg): 139 DBP (mmHg): 62 METS: --- Stage: STAGE 3 Duration (min): 2 min : 0 sec Speed (mph): 3.4 Grade (%): 14 HR (bpm): 167 SBP (mmHg): 139 DBP (mmHg): 62 METS: --- Stage: RECOVERY Duration (min): 0 min : 59 sec Speed (mph): 0.0 Grade (%): 0 HR (bpm): 158 SBP (mmHg): 157 DBP (mmHg): 83 METS: --- Stage: RECOVERY Duration (min): 1 min : 59 sec Speed (mph): 0.0 Grade (%): 0 HR (bpm): 124 SBP (mmHg): 157 DBP (mmHg): 83 METS: --- Stage: RECOVERY Duration (min): 2 min : 59 sec Speed (mph): 0.0 Grade (%): 0 HR (bpm): 116 SBP (mmHg): 166 DBP (mmHg): 86 METS: --- Stage: RECOVERY Duration (min): 3 min : 59 sec Speed (mph): 0.0 Grade (%): 0 HR (bpm): 112 SBP (mmHg): 166 DBP (mmHg): 86 METS: --- Stage: RECOVERY Duration (min): 4 min : 59 sec Speed (mph): 0.0 Grade (%): 0 HR (bpm): 107 SBP (mmHg): 153 DBP (mmHg): 89 METS: --- Stage: RECOVERY Duration (min): 5 min : 59 sec Speed (mph): 0.0 Grade (%): 0 HR (bpm): 111 SBP (mmHg): 153 DBP (mmHg): 89 METS: --- Stage: RECOVERY Duration (min): 6 min : 59 sec Speed (mph): 0.0 Grade (%): 0 HR (bpm): 106 SBP (mmHg): 126 DBP (mmHg): 93 METS: --- Stage: RECOVERY Duration (min): 7 min : 59 sec Speed (mph): 0.0 Grade (%): 0 HR (bpm): 104 SBP (mmHg): 126 DBP (mmHg): 93 METS: --- Stage: RECOVERY Duration (min): 8 min : 57 sec Speed (mph): 0.0 Grade (%): 0 HR (bpm): 108 SBP (mmHg): 126 DBP (mmHg): 93 METS: --- Rest HR: 97 bpm Peak HR: 167 bpm Rest Sys BP: 129 mmHg Peak Sys BP: 166 mmHg Max Pred HR: 181 bpm % Max Pred HR: 92 % Target HR: 154 bpm Max RPP: 27,722 bpm*mmHg Guzman Score: 4 Termination Reason: Reached target heart rate or workload Cardiac Symptoms: Chest tightness Max ST Seg Deviation: 0.90 mm Total Time: 8 min : 0 sec Rest Valderrama BP: 79 mmHg Peak Valderrama BP: 86 mmHg Angina Score: None Total METS: 10.3 Resting ECG Sinus rhythm. Stress ECG No ST changes. Arrhythmias None. Report Signatures
--- OUTSIDE RECORDS SUMMARY | 2025-07-17 11:07 | XMS_ITS | Patient Health Record ---
Author Organization [facility] As [facility] Address [address] [facility] [address] [place] [address] Support Name Relationship Address Phone NISHIALYSON KELVIN Emergency Contact Unknown NICHELLE WEBB Guarantor Unknown [phone] Reason For Referral No Information Medications Medication SIG (Take, Route, Frequency, Duration) Notes Start Date End Date Status Propranolol HCl 20 MG Tablet Oral 04/30/2023 Active Ondansetron 4 MG Tablet Disintegrating Oral 04/30/2023 Active Azelastine HCl 137 MCG/SPRAY Solution Nasal 04/30/2023 Active Eszopiclone 1 MG Tablet Oral 04/30/2023 Active Escitalopram Oxalate 20 MG Tablet Oral 04/30/2023 Active Prazosin HCl 1 MG Capsule Oral 04/30/2023 Active Rosuvastatin Calcium 5 MG Tablet Oral 04/30/2023 Active Symbicort 80-4.5 MCG/ACT Aerosol Inhalation 04/30/2023 Active Immunizations Vaccine Route Administration Date Status Comme nts Pfizer Biontech Covid-19 Vac cine 2nd dose Unknown 01/22/2021 Administered Pfizer Biontech Covid-19 Vac cine 2nd dose Unknown 02/13/2021 Administered Pfizer Biontech Covid-19 Vac cine 2nd dose Unknown 10/13/2021 Administered Social History Social History Additional Details Category Social Info Options Details Migrated Social History Migrated Social History Alcohol Intake: Occasional 06/05/2022,Tobacco Years: Former smoker 06/05/2022,Smoking Status: 04/30/2023 Plan Of Treatment No Information Insurance Providers Payer Name Payer Address Payer Phone Subscriber Number Group Number Insured Name Patient Relationship to Insured Coverage Start Date Coverage End Date [facility] Ppo [address] [place] [address] [id number] NICHELLE WEBB Self - patient is the insured Medical (General) History Surgical History Surgery Date(Month/Year) Hernia repair ([id number])
--- OUTSIDE RECORDS SUMMARY | 2025-07-17 11:08 | XMS_ITS | Clinical Summary ---
Author Organization [facility] Address [facility] [place] [address] Care Team Providers Care Hairspring Studder Name Role Phone Unavailable Primary Care Provider [...] of 3 - 19+ 3-dose series) 2004 HPV Vaccines (1 - 3-dose SCD M series) 2012 COVID-19 Vaccine ( - 2023-2 5 season) 2025 Meningococcal B Vaccine Aged Out No l [...]
== END 2025-07-17 10:03 | disposition home or self-care (01) ==
PROVIDERS: PCP Family Medicine; Visit Provider Student in an Organized Health Care Education/Training Program
DX: R07.9 Chest pain, unspecified (principal)
CPT/HCPCS: 93017

== ENCOUNTER 2025-08-15 09:52 | Outpatient (CLI) | payer BC, SELFPAY ==
--- NOTE | ~2025-08-15 | XR_ITS ---
[id number] Indication: M54.2 - Cervicalgia, PAIN TO NECK RADIATING LT SHOULDER Comparison: None Findings: The vertebral heights are intact. No fracture or subluxation. The disc heights are intact. Soft tissues unremarkable Impression: No acute abnormality. Reviewed, dictated and finalized at location P. [facility] INTERN Impression: No acute abnormality.
--- OUTSIDE RECORDS SUMMARY | 2025-08-15 11:11 | XMS_ITS | Patient Health Record ---
Author Organization [facility] As [facility] Address [address] [facility] [address] [place] [address] Support Name Relationship Address Phone NISHIALYSON KELVIN Emergency Contact Unknown [phone] NICHELLE WEBB Guarantor Unknown [phone] Reason For Referral No Information Medications Medication [...] Insured Coverage Start Date Coverage End Date [facility] Ppo [address] [place] [address] [id number] NICHELLE WEBB Self - patient is the insured Medical (General) History Surgical History Surgery Date(Month/Year) Hernia repair ([id number])
--- OUTSIDE RECORDS SUMMARY | 2025-08-15 11:11 | XMS_ITS | Clinical Summary ---
Author Organization [facility] Address [address] [place] [address] Care Team Providers Care Real Estate Services Administrator Name Role Phone Unavailable Primary Care Provider [...] M series) 2012 COVID-19 Vaccine ( - 2024-2 6 season) 2025 Influenza Adult (#1) 2025 Hepatitis A Vaccines Aged Out No long er eligible based on patient's age to complete [...]
== END 2025-08-15 09:53 | disposition home or self-care (01) ==
PROVIDERS: PCP Family Medicine
DX: M54.2 Cervicalgia (principal)
CPT/HCPCS: 72040

== ENCOUNTER 2025-09-18 14:25 | Outpatient (CLI) | payer BC, SELFPAY ==
[2025-09-18 15:30] LABS: Influenza A QL RT-PCR Negative (Negative); Influenza B QL RT-PCR Negative (Negative); SARS-CoV-2 RNA PCR Negative (Negative)
== END 2025-09-18 14:26 | disposition home or self-care (01) ==
LOC: ANHLAB 14:25
PROVIDERS: PCP Family Medicine; Visit Provider Physician Assistant Medical
DX: R50.9 Fever, unspecified (principal); R05.9 Cough, unspecified; Z20.822 Contact with and (suspected) exposure to COVID-19
CPT/HCPCS: 87636

== ENCOUNTER 2025-09-27 15:14 | Outpatient (CLI) | payer BC, SELFPAY ==
--- NOTE | ~2025-09-27 | XR_ITS ---
EXAMINATION: XR chest 2V, 09/27/2025 15:18 HUMAN RESOURCES RECRUITER HISTORY: R05.9 - Cough, unspecified COMPARISON: No comparisons available. Technique: 2 views obtained. Findings: The lungs are clear, no effusion. No pneumothorax. Heart is normal size. Mediastinal and hilar contours are within normal limits. Bony thorax no acute abnormality. Impression: No acute cardiopulmonary abnormality. Reviewed, dictated and finalized at location P. N RESOURCES RECRUITER Impression: No acute cardiopulmonary abnormality.
--- OUTSIDE RECORDS SUMMARY | 2025-09-27 17:48 | XMS_ITS | Patient Health Record ---
Author Organization [facility] As [facility] Address [address] [facility] [address] [place] [address] Support Name Relationship Address Phone NISHIALYSON KELVIN Emergency Contact Unknown NICHELLE WEBB Guarantor Unknown [phone] Reason For Referral No Information Medications Medication [...] Insured Coverage Start Date Coverage End Date [facility] Ppo [address] [place] [address] [id number] NICHELLE WEBB Self - patient is the insured Medical (General) History Surgical History Surgery Date(Month/Year) Hernia repair ([id number])
--- OUTSIDE RECORDS SUMMARY | 2025-09-27 17:49 | XMS_ITS | Clinical Summary ---
Author Organization [facility] Address [address] [place] [address] Care Team Providers Care Securities Counselor Name Role Phone Unavailable Primary Care Provider [...]
== END 2025-09-27 15:15 | disposition home or self-care (01) ==
PROVIDERS: PCP Family Medicine; Visit Provider Physician Assistant Medical
DX: R50.9 Fever, unspecified (principal); R05.9 Cough, unspecified
CPT/HCPCS: 71046